=== PATIENT | male | born 1970 | race Two or more races ===

== ENCOUNTER 2020-12-11 10:14 | Inpatient (IN) | payer OTHER ==
[~2020-12-11] VITALS: Ht 175.3 cm; Wt 99.0 kg
[2020-12-11] MEDS ORDERED: methylPREDNISolone SOD SUCC 125 MG/2 ML VL IV ONE (10:45)
[2020-12-11] MEDS ORDERED: cloNIDine HCL 0.1 MG TAB PO ONE (10:45)
[2020-12-11 11:04] LABS: Basophils # (auto) 0 10 ^3/uL (0-0.2); Basophils % (auto) 0.1 % (0.0-2.0); Eosinophils # (auto) 0 10 ^3/uL (0-0.8); Eosinophils % (auto) 0.2 % (0.0-7.0); Hematocrit 48.8 % (41.0-53.0); Hemoglobin 16.6 g/dL (13.5-17.5); Lymphocytes # (auto) 0.9 10 ^3/uL (0.4-5.4); Lymphocytes % (auto) 13.4 % (10.0-50.0); Mean Corpuscular Hgb Conc. 34.1 g/dL (32.0-36.0); Monocytes # (auto) 0.4 10 ^3/uL (0-1.3); Monocytes % (auto) 6.7 % (0.0-12.0); Neutrophils # (auto) 5.2 10 ^3/uL (1.6-8.6); Neutrophils % (auto) 79.6 % (37.0-80.0); Nucleated Red Blood Cells % 0.2 %; Red Blood Cells 5.54 10^6/uL (4.5-5.90); Red Cell Distribution Width 12.8 % (11.8-14.3); White Blood Cell 6.5 10^3/uL (4.4-10.8)
[2020-12-11 11:12] LABS: Albumin 2.7 g/dL (3.4-5.0); Anion Gap 12 (5-15); Blood Urea Nitrogen 8 mg/dL (7-18); Calcium 8.9 mg/dL (8.5-10.1); Carbon Dioxide 22 mmol/L (21-32); Chloride 97 mmol/L (98-107); Glucose 249 mg/dL (74-106); Potassium 3.7 mmol/L (3.5-5.1); Sodium 131 mmol/L (136-145)
[2020-12-11 11:18] LABS: Alanine Aminotransferase 71 U/L (16-61); Alkaline Phosphatase 98 U/L (45-117); Aspartate Aminotransferase 62 U/L (15-37); BUN/Creatinine Ratio 12.1; Bilirubin, Total 1.1 mg/dL (0.2-1.0); GFR African American 166 mL/min; GFR Non-African American 137 mL/min; Total Protein 7.2 g/dL (6.4-8.2)
[2020-12-11] MEDS ORDERED: ZINC SULFATE 220mg CAP or TAB PO ONE (11:30)
[2020-12-11] MEDS ORDERED: AZITHROMYCIN 500MG/ 250ML 250 ML IV ONE (11:30)
[2020-12-11] MEDS ORDERED: ASCORBIC ACID 500 MG TAB PO ONE (11:30)
[2020-12-11] MEDS ORDERED: CHOLECALCIFEROL (VITD3) 2,000 UNIT CAP/TAB PO ONE (11:30)
[2020-12-11] MEDS ORDERED: IOHEXOL 350 MG/ML 100ML IJ ONE (12:18)
[2020-12-11 12:40] LABS: Urine Bacteria NONE SEEN /hpf (None Seen); Urine Blood Negative /uL (Negative); Urine Mucus FEW (None Seen); Urine Specific Gravity 1.032 (1.001-1.035); Urine WBC 1 /hpf (0 - 3)
[2020-12-11] MEDS ORDERED: ONDANSETRON HCL 4 MG/2 ML VIAL IV PRN (13:30)
[2020-12-11] MEDS ORDERED: MORPHINE SULFATE INJECTION 2 MG/ML SYRG IV PRN ×2 (13:30)
[2020-12-11] MEDS ORDERED: DEXTROSE (50%) 50ML SYRG IV PRN (13:30)
[2020-12-11] MEDS ORDERED: HYDROcodone-ACET 5/325MG TAB PO PRN (13:30)
[2020-12-11] MEDS ORDERED: NITROGLYCERIN 0.4 MG SL TAB SL PRN (13:30)
[2020-12-11] MEDS ORDERED: REMDESIVIR PER PHARMACY 0 ML IV SCH (13:30)
[2020-12-11] MEDS ORDERED: ACETAMINOPHEN 500 MG TAB PO PRN (13:30)
[2020-12-11 14:07] LABS: Basophils # (auto) 0 10 ^3/uL (0-0.2); Basophils % (auto) 0.4 % (0.0-2.0); Eosinophils # (auto) 0 10 ^3/uL (0-0.8); Eosinophils % (auto) 0.1 % (0.0-7.0); Hematocrit 47.3 % (41.0-53.0); Hemoglobin 16.2 g/dL (13.5-17.5); Lymphocytes # (auto) 0.4 10 ^3/uL (0.4-5.4); Lymphocytes % (auto) 6.9 % (10.0-50.0); Mean Corpuscular Hemoglobin 30.1 pg (28.0-32.0); Mean Corpuscular Hgb Conc. 34.2 g/dL (32.0-36.0); Mean Corpuscular Volume 87.9 fL (80.0-100.0); Monocytes # (auto) 0.5 10 ^3/uL (0-1.3); Monocytes % (auto) 8.6 % (0.0-12.0); Neutrophils # (auto) 5.2 10 ^3/uL (1.6-8.6); Nucleated Red Blood Cells % 0.4 %; Red Blood Cells 5.38 10^6/uL (4.5-5.90); Red Cell Distribution Width 12.9 % (11.8-14.3); White Blood Cell 6.2 10^3/uL (4.4-10.8)
[2020-12-11 14:14] LABS: Albumin 2.6 g/dL (3.4-5.0); Calcium 8.7 mg/dL (8.5-10.1); Magnesium 2.4 mg/dL (1.6-2.6)
[2020-12-11 14:23] LABS: BUN/Creatinine Ratio 12.3; Bilirubin, Total 1.2 mg/dL (0.2-1.0); CRP High Sensitivity 17.1 mg/dL (< 0.3)
[2020-12-11 14:28] LABS: Lactic Acid w/Reflex 2.4 mmol/L (0.4-2.0)
[2020-12-11 15:07] LABS: Thyroid Stimulating Hormone 0.15 uIU/mL (0.358-3.74)
[2020-12-11] MEDS: ACCU-CHEK COMFORT CURVE STRIP VI SCH ×2 (17:25→23:07)
[2020-12-11] MEDS: InsuLIN REG 1unit/0.01ml Soln (100units/ml) SC SCH ×2 (17:25→23:07)
[2020-12-11 17:41] VITALS: BP 179/111
[2020-12-11] MEDS: ALBUTEROL SULF HFA 90MCG INH 200DOSE IN PRN (19:06)
[2020-12-11] MEDS: BUDESONIDE (INHALATION) 180 MCG IH IN SCH (19:06)
[2020-12-11] MEDS ORDERED: REMDESIVIR 200 MG in NS 210ml LOADING DOSE ADULT IV ONE (21:00)
[2020-12-11] MEDS: ENOXAPARIN SOD 40 MG/0.4 ML SYRINGE SC SCH (23:10)
[2020-12-12] MEDS: BUDESONIDE (INHALATION) 180 MCG IH IN SCH ×2 (07:27→18:48)
[2020-12-12] MEDS: ALBUTEROL SULF HFA 90MCG INH 200DOSE IN PRN ×2 (07:28→18:48)
[2020-12-12 07:39] LABS: Albumin 2.3 g/dL (3.4-5.0); Calcium 8.1 mg/dL (8.5-10.1); Potassium 3.5 mmol/L (3.5-5.1)
[2020-12-12 07:44] LABS: BUN/Creatinine Ratio 20.9; Bilirubin, Total 0.8 mg/dL (0.2-1.0); Total Protein 6.4 g/dL (6.4-8.2)
[2020-12-12] MEDS: ACCU-CHEK COMFORT CURVE STRIP VI SCH ×4 (07:45→22:24)
[2020-12-12] MEDS: InsuLIN REG 1unit/0.01ml Soln (100units/ml) SC SCH ×4 (07:49→22:00)
[2020-12-12] MEDS: DexAMETHasone SOD PHOS 10MG/1ML VIAL INJ IV SCH (09:59)
[2020-12-12] MEDS: AZITHROMYCIN 500MG/ 250ML 250 ML IV SCH (09:59)
[2020-12-12] MEDS: IVERMECTIN 3 MG TAB PO SCH (10:00)
[2020-12-12] MEDS: ZINC SULFATE 220mg CAP or TAB PO SCH (10:00)
[2020-12-12] MEDS: ASCORBIC ACID 1,000 MG TAB PO SCH (10:00)
[2020-12-12] MEDS: CHOLECALCIFEROL (VITD3) 2,000 UNIT CAP/TAB PO SCH (10:00)
[2020-12-12] MEDS: ENOXAPARIN SOD 40 MG/0.4 ML SYRINGE SC SCH ×2 (10:01→22:45)
[2020-12-12] MEDS: INSULIN LANTUS (GLARGINE) 1 /0.01ml (100units/ml) SC SCH ×2 (13:06→22:33)
[2020-12-12] MEDS: REMDESIVIR 100mg 100 MG in SODIUM CHL 0.9% 230 ML IV SCH (15:00)
[2020-12-13 03:59] LABS: Basophils # (auto) 0 10 ^3/uL (0-0.2); Basophils % (auto) 0.2 % (0.0-2.0); Eosinophils # (auto) 0 10 ^3/uL (0-0.8); Hematocrit 44.8 % (41.0-53.0); Hemoglobin 15.3 g/dL (13.5-17.5); Lymphocytes # (auto) 0.7 10 ^3/uL (0.4-5.4); Lymphocytes % (auto) 6.6 % (10.0-50.0); Mean Corpuscular Hemoglobin 30.1 pg (28.0-32.0); Mean Corpuscular Hgb Conc. 34.2 g/dL (32.0-36.0); Mean Corpuscular Volume 87.9 fL (80.0-100.0); Monocytes # (auto) 0.6 10 ^3/uL (0-1.3); Monocytes % (auto) 6.2 % (0.0-12.0); Neutrophils # (auto) 8.9 10 ^3/uL (1.6-8.6); Nucleated Red Blood Cells % 0.1 %; Red Blood Cells 5.09 10^6/uL (4.5-5.90); Red Cell Distribution Width 12.8 % (11.8-14.3); White Blood Cell 10.2 10^3/uL (4.4-10.8)
[2020-12-13 04:22] LABS: Albumin 2.3 g/dL (3.4-5.0); Magnesium 2.2 mg/dL (1.6-2.6); Potassium 3.3 mmol/L (3.5-5.1)
[2020-12-13 04:26] LABS: BUN/Creatinine Ratio 26.5; Bilirubin, Total 0.6 mg/dL (0.2-1.0); Total Protein 6.2 g/dL (6.4-8.2)
[2020-12-13] MEDS: ACCU-CHEK COMFORT CURVE STRIP VI SCH ×4 (08:29→22:02)
[2020-12-13] MEDS: INSULIN LANTUS (GLARGINE) 1 /0.01ml (100units/ml) SC SCH ×2 (08:31→22:02)
[2020-12-13] MEDS: InsuLIN REG 1unit/0.01ml Soln (100units/ml) SC SCH ×4 (08:32→22:02)
[2020-12-13] MEDS: AZITHROMYCIN 500MG/ 250ML 250 ML IV SCH (10:09)
[2020-12-13] MEDS: ZINC SULFATE 220mg CAP or TAB PO SCH (10:09)
[2020-12-13] MEDS: CHOLECALCIFEROL (VITD3) 2,000 UNIT CAP/TAB PO SCH (10:09)
[2020-12-13] MEDS: DexAMETHasone SOD PHOS 10MG/1ML VIAL INJ IV SCH (10:09)
[2020-12-13] MEDS: ASCORBIC ACID 1,000 MG TAB PO SCH (10:09)
[2020-12-13] MEDS: ENOXAPARIN SOD 40 MG/0.4 ML SYRINGE SC SCH ×2 (10:10→22:01)
[2020-12-13] MEDS: IVERMECTIN 3 MG TAB PO SCH (10:14)
[2020-12-13] MEDS: ALBUTEROL SULF HFA 90MCG INH 200DOSE IN PRN ×2 (10:44→19:35)
[2020-12-13] MEDS: BUDESONIDE (INHALATION) 180 MCG IH IN SCH ×2 (10:44→19:35)
[2020-12-13] MEDS ORDERED: GLUC-244 XX (13:28)
[2020-12-13] MEDS ORDERED: METF-372 PO (13:28)
[2020-12-13] MEDS ORDERED: TADA2.5T2 PO (13:28)
[2020-12-13] MEDS ORDERED: GLYB5TAB8 PO (13:28)
[2020-12-13] MEDS ORDERED: AZIT250T9 PO (13:28)
[2020-12-13] MEDS ORDERED: ERY05OO RIGHTEYE (13:28)
[2020-12-13] MEDS: POTASSIUM CHL 20MEQ/100ML 100 ML IV SCH ×2 (14:29→16:07)
[2020-12-13] MEDS: REMDESIVIR 100mg 100 MG in SODIUM CHL 0.9% 230 ML IV SCH (16:07)
[2020-12-13] MEDS ORDERED: FUROSEMIDE 20 MG/2 ML VIAL IV ONE (18:00)
[2020-12-13] MEDS ORDERED: TOCILIZUMAB 400 MG in SODIUM CHL 0.9% 80 ML IV ONE (18:00)
[2020-12-13 22:37] VITALS: BP 160/82
[2020-12-14 01:57] VITALS: BP 127/70
[2020-12-14 06:05] VITALS: BP 157/79
[2020-12-14] MEDS: BUDESONIDE (INHALATION) 180 MCG IH IN SCH ×2 (06:38→20:57)
[2020-12-14] MEDS: ALBUTEROL SULF HFA 90MCG INH 200DOSE IN PRN ×2 (06:38→20:57)
[2020-12-14 06:51] LABS: Basophils # (auto) 0.2 10 ^3/uL (0-0.2); Basophils % (auto) 2.6 % (0.0-2.0); Eosinophils # (auto) 0.1 10 ^3/uL (0-0.8); Eosinophils % (auto) 1.1 % (0.0-7.0); Hematocrit 45.1 % (41.0-53.0); Hemoglobin 16.1 g/dL (13.5-17.5); Lymphocytes # (auto) 0.9 10 ^3/uL (0.4-5.4); Mean Corpuscular Hgb Conc. 35.7 g/dL (32.0-36.0); Mean Corpuscular Volume 86.8 fL (80.0-100.0); Monocytes # (auto) 0.3 10 ^3/uL (0-1.3); Monocytes % (auto) 4.4 % (0.0-12.0); Neutrophils # (auto) 5.5 10 ^3/uL (1.6-8.6); Neutrophils % (auto) 78.9 % (37.0-80.0); Nucleated Red Blood Cells % 0.1 %; Red Cell Distribution Width 12.9 % (11.8-14.3); White Blood Cell 6.9 10^3/uL (4.4-10.8)
[2020-12-14 07:00] LABS: Potassium 3.2 mmol/L (3.5-5.1)
[2020-12-14 07:06] LABS: Albumin 2.4 g/dL (3.4-5.0); BUN/Creatinine Ratio 23.1; Bilirubin, Total 0.8 mg/dL (0.2-1.0); Calcium 8.3 mg/dL (8.5-10.1); Total Protein 6.4 g/dL (6.4-8.2)
[2020-12-14] MEDS: ACCU-CHEK COMFORT CURVE STRIP VI SCH ×4 (07:15→21:53)
[2020-12-14] MEDS: InsuLIN REG 1unit/0.01ml Soln (100units/ml) SC SCH ×4 (07:15→22:01)
[2020-12-14] MEDS: INSULIN LANTUS (GLARGINE) 1 /0.01ml (100units/ml) SC SCH ×2 (07:15→22:01)
[2020-12-14] MEDS ORDERED: TOCILIZUMAB 400 MG in SODIUM CHL 0.9% 80 ML IV ONE (09:00)
[2020-12-14 10:05] VITALS: BP 138/79
[2020-12-14] MEDS: ASCORBIC ACID 1,000 MG TAB PO SCH (10:30)
[2020-12-14] MEDS: ZINC SULFATE 220mg CAP or TAB PO SCH (10:30)
[2020-12-14] MEDS: IVERMECTIN 3 MG TAB PO SCH (10:30)
[2020-12-14] MEDS: ENOXAPARIN SOD 40 MG/0.4 ML SYRINGE SC SCH ×2 (10:30→22:01)
[2020-12-14] MEDS: DexAMETHasone SOD PHOS 10MG/1ML VIAL INJ IV SCH (10:30)
[2020-12-14] MEDS: CHOLECALCIFEROL (VITD3) 2,000 UNIT CAP/TAB PO SCH (10:30)
[2020-12-14] MEDS: AZITHROMYCIN 500MG/ 250ML 250 ML IV SCH (10:39)
[2020-12-14] MEDS ORDERED: FUROSEMIDE 20 MG/2 ML VIAL IV ONE (12:45)
[2020-12-14] MEDS ORDERED: cefTRIAXone 1GM/50ML D5W 50 ML IV ONE (12:45)
[2020-12-14] MEDS: REMDESIVIR 100mg 100 MG in SODIUM CHL 0.9% 230 ML IV SCH (16:10)
[2020-12-14 21:52] VITALS: BP 160/92
[2020-12-14 22:18] VITALS: BP 140/90
[2020-12-15 04:10] VITALS: BP 148/79
[2020-12-15 06:05] VITALS: BP 126/77
[2020-12-15] MEDS: BUDESONIDE (INHALATION) 180 MCG IH IN SCH ×2 (06:05→18:30)
[2020-12-15] MEDS: ALBUTEROL SULF HFA 90MCG INH 200DOSE IN PRN ×2 (06:05→19:25)
[2020-12-15 06:30] LABS: Basophils # (auto) 0 10 ^3/uL (0-0.2); Basophils % (auto) 0.4 % (0.0-2.0); Eosinophils # (auto) 0.1 10 ^3/uL (0-0.8); Eosinophils % (auto) 1.6 % (0.0-7.0); Hematocrit 44.1 % (41.0-53.0); Hemoglobin 15.6 g/dL (13.5-17.5); Lymphocytes % (auto) 13.6 % (10.0-50.0); Mean Corpuscular Hemoglobin 30.6 pg (28.0-32.0); Mean Corpuscular Hgb Conc. 35.3 g/dL (32.0-36.0); Mean Corpuscular Volume 86.9 fL (80.0-100.0); Monocytes # (auto) 0.4 10 ^3/uL (0-1.3); Monocytes % (auto) 5.1 % (0.0-12.0); Neutrophils # (auto) 5.7 10 ^3/uL (1.6-8.6); Neutrophils % (auto) 79.3 % (37.0-80.0); Nucleated Red Blood Cells % 0.1 %; Red Blood Cells 5.07 10^6/uL (4.5-5.90); Red Cell Distribution Width 13.1 % (11.8-14.3); White Blood Cell 7.2 10^3/uL (4.4-10.8)
[2020-12-15] MEDS: InsuLIN REG 1unit/0.01ml Soln (100units/ml) SC SCH ×3 (06:40→22:00)
[2020-12-15] MEDS: INSULIN LANTUS (GLARGINE) 1 /0.01ml (100units/ml) SC SCH ×2 (06:41→22:00)
[2020-12-15] MEDS: ACCU-CHEK COMFORT CURVE STRIP VI SCH ×3 (06:44→21:50)
[2020-12-15 06:53] LABS: Albumin 2.3 g/dL (3.4-5.0); Calcium 8.2 mg/dL (8.5-10.1); Potassium 3.8 mmol/L (3.5-5.1)
[2020-12-15 06:58] LABS: BUN/Creatinine Ratio 23.6; Bilirubin, Total 0.7 mg/dL (0.2-1.0); Total Protein 6.1 g/dL (6.4-8.2)
[2020-12-15] MEDS: cefTRIAXone 1GM/50ML D5W 50 ML IV SCH (09:28)
[2020-12-15 10:14] VITALS: BP 100/73
[2020-12-15] MEDS: DexAMETHasone SOD PHOS 10MG/1ML VIAL INJ IV SCH (11:25)
[2020-12-15] MEDS: FUROSEMIDE 20 MG/2 ML VIAL IV SCH (11:26)
[2020-12-15] MEDS: AZITHROMYCIN 500MG/ 250ML 250 ML IV SCH (11:26)
[2020-12-15] MEDS: ZINC SULFATE 220mg CAP or TAB PO SCH (11:26)
[2020-12-15] MEDS: ENOXAPARIN SOD 40 MG/0.4 ML SYRINGE SC SCH ×2 (11:27→22:00)
[2020-12-15] MEDS: IVERMECTIN 3 MG TAB PO SCH (11:27)
[2020-12-15] MEDS: CHOLECALCIFEROL (VITD3) 2,000 UNIT CAP/TAB PO SCH (11:27)
[2020-12-15] MEDS: ASCORBIC ACID 1,000 MG TAB PO SCH (11:27)
[2020-12-15 13:58] VITALS: BP 145/88
[2020-12-15] MEDS: REMDESIVIR 100mg 100 MG in SODIUM CHL 0.9% 230 ML IV SCH (15:39)
[2020-12-15] MEDS ORDERED: DEXTROSE (50%) 50ML SYRG IV PRN ×2 (15:45→19:15)
[2020-12-15] MEDS ORDERED: InsuLIN REG 1unit/0.01ml Soln (100units/ml) SC SCH (18:00)
[2020-12-15] MEDS ORDERED: ACCU-CHEK COMFORT CURVE STRIP VI SCH (18:00)
[2020-12-15 18:30] VITALS: BP 143/84
[2020-12-15 22:13] VITALS: BP 138/87
[2020-12-16 02:07] VITALS: BP 128/80
[2020-12-16 05:54] LABS: Basophils # (auto) 0 10 ^3/uL (0-0.2); Basophils % (auto) 0.4 % (0.0-2.0); Eosinophils # (auto) 0.2 10 ^3/uL (0-0.8); Eosinophils % (auto) 2.2 % (0.0-7.0); Hematocrit 47.5 % (41.0-53.0); Hemoglobin 16.2 g/dL (13.5-17.5); Lymphocytes # (auto) 0.7 10 ^3/uL (0.4-5.4); Lymphocytes % (auto) 10.4 % (10.0-50.0); Mean Corpuscular Hemoglobin 30.1 pg (28.0-32.0); Mean Corpuscular Hgb Conc. 34.1 g/dL (32.0-36.0); Mean Corpuscular Volume 88.3 fL (80.0-100.0); Monocytes # (auto) 0.5 10 ^3/uL (0-1.3); Monocytes % (auto) 6.6 % (0.0-12.0); Neutrophils # (auto) 5.7 10 ^3/uL (1.6-8.6); Neutrophils % (auto) 80.4 % (37.0-80.0); Nucleated Red Blood Cells % 0.1 %; Red Blood Cells 5.38 10^6/uL (4.5-5.90); Red Cell Distribution Width 12.9 % (11.8-14.3); White Blood Cell 7.1 10^3/uL (4.4-10.8)
[2020-12-16 06:01] LABS: Potassium 4.1 mmol/L (3.5-5.1)
[2020-12-16] MEDS: ALBUTEROL SULF HFA 90MCG INH 200DOSE IN PRN ×2 (06:05→22:08)
[2020-12-16] MEDS: BUDESONIDE (INHALATION) 180 MCG IH IN SCH ×2 (06:05→22:08)
[2020-12-16] MEDS: ACCU-CHEK COMFORT CURVE STRIP VI SCH ×4 (06:06→21:40)
[2020-12-16] MEDS: InsuLIN REG 1unit/0.01ml Soln (100units/ml) SC SCH ×4 (06:12→21:45)
[2020-12-16 06:25] LABS: Albumin 2.5 g/dL (3.4-5.0); BUN/Creatinine Ratio 25.7; Bilirubin, Total 0.7 mg/dL (0.2-1.0); CRP High Sensitivity 0.96 mg/dL (< 0.3); Calcium 8.3 mg/dL (8.5-10.1); Magnesium 2.3 mg/dL (1.6-2.6); Total Protein 6.4 g/dL (6.4-8.2)
[2020-12-16] MEDS: INSULIN LANTUS (GLARGINE) 1 /0.01ml (100units/ml) SC SCH ×2 (07:54→21:46)
[2020-12-16 10:05] VITALS: BP 135/93
[2020-12-16] MEDS: cefTRIAXone 1GM/50ML D5W 50 ML IV SCH (10:24)
[2020-12-16] MEDS: FUROSEMIDE 20 MG/2 ML VIAL IV SCH (10:24)
[2020-12-16] MEDS: DexAMETHasone SOD PHOS 10MG/1ML VIAL INJ IV SCH (10:24)
[2020-12-16] MEDS: AZITHROMYCIN 500MG/ 250ML 250 ML IV SCH (10:25)
[2020-12-16] MEDS: ZINC SULFATE 220mg CAP or TAB PO SCH (10:25)
[2020-12-16] MEDS: CHOLECALCIFEROL (VITD3) 2,000 UNIT CAP/TAB PO SCH (10:26)
[2020-12-16] MEDS: IVERMECTIN 3 MG TAB PO SCH (10:26)
[2020-12-16] MEDS: ASCORBIC ACID 1,000 MG TAB PO SCH (10:26)
[2020-12-16] MEDS: ENOXAPARIN SOD 40 MG/0.4 ML SYRINGE SC SCH ×2 (10:27→21:56)
[2020-12-16 14:12] VITALS: BP 123/85
[2020-12-16] MEDS ORDERED: InsuLIN REG 1unit/0.01ml Soln (100units/ml) IV ONE (17:45)
[2020-12-16 18:10] VITALS: BP 121/81
[2020-12-16 21:11] VITALS: BP 118/78
[2020-12-16] MEDS ORDERED: ENOXAPARIN SOD 40 MG/0.4 ML SYRINGE SC ONE (21:55)
[2020-12-16] MEDS ORDERED: INSULIN LANTUS (GLARGINE) 1 /0.01ml (100units/ml) SC ONE (21:55)
[2020-12-16] MEDS ORDERED: InsuLIN REG 1unit/0.01ml Soln (100units/ml) ONE (21:56)
[2020-12-17 03:11] VITALS: BP 157/92
[2020-12-17] MEDS ORDERED: INSULIN LANTUS (GLARGINE) 1 /0.01ml (100units/ml) SC ONE (06:33)
[2020-12-17] MEDS ORDERED: InsuLIN REG 1unit/0.01ml Soln (100units/ml) ONE (06:34)
[2020-12-17] MEDS: INSULIN LANTUS (GLARGINE) 1 /0.01ml (100units/ml) SC SCH ×2 (06:37→21:42)
[2020-12-17] MEDS: InsuLIN REG 1unit/0.01ml Soln (100units/ml) SC SCH ×4 (06:37→21:43)
[2020-12-17] MEDS: ACCU-CHEK COMFORT CURVE STRIP VI SCH ×4 (06:38→21:41)
[2020-12-17 06:51] VITALS: BP 131/89
[2020-12-17] MEDS: ALBUTEROL SULF HFA 90MCG INH 200DOSE IN PRN (08:11)
[2020-12-17] MEDS: BUDESONIDE (INHALATION) 180 MCG IH IN SCH ×2 (08:12→21:51)
[2020-12-17] MEDS: DexAMETHasone SOD PHOS 10MG/1ML VIAL INJ IV SCH (09:28)
[2020-12-17] MEDS: cefTRIAXone 1GM/50ML D5W 50 ML IV SCH (09:28)
[2020-12-17] MEDS: ZINC SULFATE 220mg CAP or TAB PO SCH (09:29)
[2020-12-17] MEDS: ASCORBIC ACID 1,000 MG TAB PO SCH (09:29)
[2020-12-17] MEDS: CHOLECALCIFEROL (VITD3) 2,000 UNIT CAP/TAB PO SCH (09:29)
[2020-12-17] MEDS: FUROSEMIDE 20 MG/2 ML VIAL IV SCH (09:29)
[2020-12-17] MEDS: ENOXAPARIN SOD 40 MG/0.4 ML SYRINGE SC SCH ×2 (09:30→21:26)
[2020-12-17 17:54] VITALS: BP 123/75
[2020-12-18] MEDS: ALBUTEROL SULF HFA 90MCG INH 200DOSE IN PRN ×2 (00:30→22:20)
[2020-12-18 03:06] VITALS: BP 131/79
[2020-12-18 05:00] VITALS: BP 139/85
[2020-12-18] MEDS: INSULIN LANTUS (GLARGINE) 1 /0.01ml (100units/ml) SC SCH ×2 (05:11→20:46)
[2020-12-18] MEDS: ACCU-CHEK COMFORT CURVE STRIP VI SCH ×4 (05:13→20:42)
[2020-12-18] MEDS: InsuLIN REG 1unit/0.01ml Soln (100units/ml) SC SCH ×4 (05:13→20:46)
[2020-12-18 06:10] LABS: Basophils # (auto) 0 10 ^3/uL (0-0.2); Basophils % (auto) 0.2 % (0.0-2.0); Eosinophils # (auto) 0.2 10 ^3/uL (0-0.8); Eosinophils % (auto) 2.9 % (0.0-7.0); Hematocrit 46.5 % (41.0-53.0); Hemoglobin 16.1 g/dL (13.5-17.5); Lymphocytes # (auto) 1.3 10 ^3/uL (0.4-5.4); Lymphocytes % (auto) 16.3 % (10.0-50.0); Mean Corpuscular Hemoglobin 30.9 pg (28.0-32.0); Mean Corpuscular Hgb Conc. 34.7 g/dL (32.0-36.0); Mean Corpuscular Volume 89.2 fL (80.0-100.0); Monocytes # (auto) 0.7 10 ^3/uL (0-1.3); Monocytes % (auto) 8.2 % (0.0-12.0); Neutrophils # (auto) 5.9 10 ^3/uL (1.6-8.6); Neutrophils % (auto) 72.4 % (37.0-80.0); Red Blood Cells 5.22 10^6/uL (4.5-5.90); Red Cell Distribution Width 12.9 % (11.8-14.3); White Blood Cell 8.2 10^3/uL (4.4-10.8)
[2020-12-18 06:24] LABS: BUN/Creatinine Ratio 19.7; Calcium 8.4 mg/dL (8.5-10.1)
[2020-12-18 09:00] VITALS: BP 117/80
[2020-12-18] MEDS: BUDESONIDE (INHALATION) 180 MCG IH IN SCH ×2 (09:31→22:20)
[2020-12-18] MEDS: cefTRIAXone 1GM/50ML D5W 50 ML IV SCH (09:37)
[2020-12-18] MEDS: ZINC SULFATE 220mg CAP or TAB PO SCH (09:38)
[2020-12-18] MEDS: ASCORBIC ACID 1,000 MG TAB PO SCH (09:38)
[2020-12-18] MEDS: FUROSEMIDE 20 MG/2 ML VIAL IV SCH (09:38)
[2020-12-18] MEDS: DexAMETHasone SOD PHOS 10MG/1ML VIAL INJ IV SCH (09:38)
[2020-12-18] MEDS: ENOXAPARIN SOD 40 MG/0.4 ML SYRINGE SC SCH ×2 (09:39→20:48)
[2020-12-18] MEDS: CHOLECALCIFEROL (VITD3) 2,000 UNIT CAP/TAB PO SCH (09:39)
[2020-12-18 13:27] VITALS: BP 130/88
[2020-12-18 17:12] VITALS: BP 126/78
[2020-12-18 22:15] VITALS: BP 137/88
[2020-12-19 05:17] VITALS: BP 122/74
[2020-12-19] MEDS: ACCU-CHEK COMFORT CURVE STRIP VI SCH ×4 (05:23→22:03)
[2020-12-19] MEDS: INSULIN LANTUS (GLARGINE) 1 /0.01ml (100units/ml) SC SCH ×2 (05:25→22:04)
[2020-12-19] MEDS: InsuLIN REG 1unit/0.01ml Soln (100units/ml) SC SCH ×4 (05:26→22:04)
[2020-12-19 06:47] LABS: Basophils # (auto) 0 10 ^3/uL (0-0.2); Basophils % (auto) 0.2 % (0.0-2.0); Eosinophils # (auto) 0.1 10 ^3/uL (0-0.8); Eosinophils % (auto) 1.9 % (0.0-7.0); Hematocrit 46.9 % (41.0-53.0); Hemoglobin 16.2 g/dL (13.5-17.5); Lymphocytes # (auto) 1.4 10 ^3/uL (0.4-5.4); Lymphocytes % (auto) 19.3 % (10.0-50.0); Mean Corpuscular Hemoglobin 31.1 pg (28.0-32.0); Mean Corpuscular Hgb Conc. 34.6 g/dL (32.0-36.0); Monocytes # (auto) 0.7 10 ^3/uL (0-1.3); Monocytes % (auto) 9.7 % (0.0-12.0); Neutrophils # (auto) 5.1 10 ^3/uL (1.6-8.6); Neutrophils % (auto) 68.9 % (37.0-80.0); Nucleated Red Blood Cells % 0.1 %; Red Blood Cells 5.21 10^6/uL (4.5-5.90); White Blood Cell 7.4 10^3/uL (4.4-10.8)
[2020-12-19 07:00] LABS: BUN/Creatinine Ratio 21.8; Calcium 8.6 mg/dL (8.5-10.1); Potassium 4.6 mmol/L (3.5-5.1)
[2020-12-19] MEDS: BUDESONIDE (INHALATION) 180 MCG IH IN SCH ×2 (08:03→20:30)
[2020-12-19] MEDS: ALBUTEROL SULF HFA 90MCG INH 200DOSE IN PRN ×2 (08:03→21:03)
[2020-12-19] MEDS: cefTRIAXone 1GM/50ML D5W 50 ML IV SCH (08:53)
[2020-12-19] MEDS: CHOLECALCIFEROL (VITD3) 2,000 UNIT CAP/TAB PO SCH (08:54)
[2020-12-19] MEDS: ZINC SULFATE 220mg CAP or TAB PO SCH (08:54)
[2020-12-19] MEDS: ENOXAPARIN SOD 40 MG/0.4 ML SYRINGE SC SCH ×2 (08:54→22:03)
[2020-12-19] MEDS: ASCORBIC ACID 1,000 MG TAB PO SCH (08:55)
[2020-12-19] MEDS: DexAMETHasone SOD PHOS 10MG/1ML VIAL INJ IV SCH (08:55)
[2020-12-19] MEDS: FUROSEMIDE 20 MG/2 ML VIAL IV SCH (08:57)
[2020-12-19 09:00] VITALS: BP 129/86
[2020-12-19 13:00] VITALS: BP 110/76
[2020-12-19 17:00] VITALS: BP 112/67
[2020-12-19 22:00] VITALS: BP 126/72
[2020-12-20 05:00] VITALS: BP 132/80
[2020-12-20 06:08] LABS: Basophils # (auto) 0.1 10 ^3/uL (0-0.2); Basophils % (auto) 0.8 % (0.0-2.0); Eosinophils # (auto) 0.1 10 ^3/uL (0-0.8); Eosinophils % (auto) 1.9 % (0.0-7.0); Hematocrit 47.2 % (41.0-53.0); Hemoglobin 16.1 g/dL (13.5-17.5); Lymphocytes # (auto) 1.7 10 ^3/uL (0.4-5.4); Mean Corpuscular Hemoglobin 30.8 pg (28.0-32.0); Mean Corpuscular Hgb Conc. 34.2 g/dL (32.0-36.0); Mean Corpuscular Volume 90.2 fL (80.0-100.0); Monocytes # (auto) 0.8 10 ^3/uL (0-1.3); Monocytes % (auto) 11.3 % (0.0-12.0); Nucleated Red Blood Cells % 0.1 %; Red Blood Cells 5.24 10^6/uL (4.5-5.90); White Blood Cell 6.7 10^3/uL (4.4-10.8)
[2020-12-20] MEDS: ACCU-CHEK COMFORT CURVE STRIP VI SCH ×3 (06:13→18:10)
[2020-12-20] MEDS: INSULIN LANTUS (GLARGINE) 1 /0.01ml (100units/ml) SC SCH (06:19)
[2020-12-20] MEDS: InsuLIN REG 1unit/0.01ml Soln (100units/ml) SC SCH ×3 (06:20→18:10)
[2020-12-20 06:23] LABS: BUN/Creatinine Ratio 20.8; Calcium 8.7 mg/dL (8.5-10.1); Potassium 4.5 mmol/L (3.5-5.1)
[2020-12-20] MEDS: ALBUTEROL SULF HFA 90MCG INH 200DOSE IN PRN (07:23)
[2020-12-20] MEDS: BUDESONIDE (INHALATION) 180 MCG IH IN SCH (07:24)
[2020-12-20 08:54] VITALS: BP 127/82
[2020-12-20] MEDS: cefTRIAXone 1GM/50ML D5W 50 ML IV SCH (09:08)
[2020-12-20] MEDS: ZINC SULFATE 220mg CAP or TAB PO SCH (09:33)
[2020-12-20] MEDS: ASCORBIC ACID 1,000 MG TAB PO SCH (09:33)
[2020-12-20] MEDS: CHOLECALCIFEROL (VITD3) 2,000 UNIT CAP/TAB PO SCH (09:33)
[2020-12-20] MEDS: ENOXAPARIN SOD 40 MG/0.4 ML SYRINGE SC SCH (09:33)
[2020-12-20] MEDS: DexAMETHasone SOD PHOS 10MG/1ML VIAL INJ IV SCH (09:33)
[2020-12-20] MEDS: FUROSEMIDE 20 MG/2 ML VIAL IV SCH (09:34)
[2020-12-20] MEDS ORDERED: ASCO10003 PO (12:02)
[2020-12-20] MEDS ORDERED: ALBUAER3 IN (12:03)
[2020-12-20] MEDS ORDERED: CHOL1CAP47 PO (12:03)
[2020-12-20 12:58] VITALS: BP 124/71
[2020-12-20 15:41] VITALS: BP 127/82
[2020-12-20 17:00] VITALS: BP 124/78
== END 2020-12-20 20:11 | disposition home or self-care (01) | DRG 177 ==
LOC: ER 10:14 → EDBD 10:14 → TELE 13:28 → TELE-EAST 12-18 02:56
PROVIDERS: ADMIT Nurse Practitioner Acute Care; ATTEND Internal Medicine Pulmonary Disease
PROC: XW033E5 Introduction of Remdesivir Anti-infective into Peripheral Vein, Percutaneous Approach, New Technology Group 5 (ICD-10-PCS; principal; 2020-12-11)
PROC: XW033H5 Introduction of Tocilizumab into Peripheral Vein, Percutaneous Approach, New Technology Group 5 (ICD-10-PCS; 2020-12-13)
DX: U07.1 COVID-19 (principal); J12.82 Pneumonia due to coronavirus disease 2019; J96.01 Acute respiratory failure with hypoxia; E11.65 Type 2 diabetes mellitus with hyperglycemia; E66.01 Morbid (severe) obesity due to excess calories; D89.839 Cytokine release syndrome, grade unspecified; R74.8 Abnormal levels of other serum enzymes; Z68.32 Body mass index [BMI] 32.0-32.9, adult; Z83.3 Family history of diabetes mellitus
CPT/HCPCS: 36415; 36600; 71045; 71275; 80048; 80053; 81001; 82306; 82728; 82805; 82962; 83036; 83605; 83615; 83735; 83880; 84443; 84484; 85025; 85379; 86141; 87426; 93005; 94640; 96365; 96366; 96367; 96372; 96375; 99291; G0378; J0696; J1100; J1815; J3480